=== PATIENT | female | born 1985 | race Caucasian/White ===

== ENCOUNTER → 2020-05-02 09:54 | Outpatient (BNVA) | payer SELFPAY | PROVIDERS: Family Provider Physician Assistant; PCP Physician Assistant; Visit Provider Internal Medicine Rheumatology | DX: M25.50 Pain in unspecified joint (principal); M79.7 Fibromyalgia; Z79.899 Other long term (current) drug therapy; R76.8 Other specified abnormal immunological findings in serum; M77.12 Lateral epicondylitis, left elbow; M77.11 Lateral epicondylitis, right elbow; M77.02 Medial epicondylitis, left elbow; M77.01 Medial epicondylitis, right elbow | CPT/HCPCS: 99204 ==

== ENCOUNTER → 2020-08-08 11:24 | Outpatient (BNVA) | payer SELFPAY | PROVIDERS: Family Provider Physician Assistant; PCP Nurse Practitioner; Visit Provider Internal Medicine Rheumatology | DX: R76.8 Other specified abnormal immunological findings in serum; M79.7 Fibromyalgia; Z79.899 Other long term (current) drug therapy; M25.50 Pain in unspecified joint; M77.12 Lateral epicondylitis, left elbow; M77.11 Lateral epicondylitis, right elbow; M77.02 Medial epicondylitis, left elbow; M77.01 Medial epicondylitis, right elbow | CPT/HCPCS: 99214 ==